=== PATIENT | female | born 1985 | race African-American/Black ===

== ENCOUNTER 2019-07-20 07:15 | Emergency (ER) | payer SELFPAY ==
[2019-07-20] MEDS ORDERED: Ketorolac Tromethamine 60 MG/2 ML VIAL ONE (07:29)
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
[2019-07-20 08:57] LABS: BHCG - Serum Negative (NEGATIVE)
[2019-07-20 08:58] LABS: Pregs Control Background? CLEAR/WHITE (CLR/WHITE); Pregs Control Bar Appear? YES (CONTROL BAR)
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
[2019-07-20] MEDS ORDERED: Acetaminophen 325 MG TAB ONE (10:19)
[2019-07-20] MEDS ORDERED: Acetaminophen 500 MG TAB ONE (10:27)
[2019-07-20] MEDS ORDERED: ISOVUE-370 76%-LOCM 1 ML ONE (12:16)
== END 2019-07-20 10:39 | disposition home or self-care (01) ==
LOC: ERS 07:15
DX: S40.011A Contusion of right shoulder, initial encounter (principal); V89.2XXA Person injured in unspecified motor-vehicle accident, traffic, initial encounter
CPT/HCPCS: 70450; 71260; 72125; 74177; 84703; 96372; J1885